=== PATIENT | male | born 1950 | race Caucasian/White ===

== ENCOUNTER → 2018-06-17 | Outpatient (CLI) | payer MEDICARE ==
[2018-06-17 11:19] LABS: HCT 45.9 % (39.0-53.0); HGB 14.5 gm/dL (13.0-17.5); MCH 28.2 pg (25.0-35.0); MCHC 31.6 g/dL (31.0-37.0); MCV 89.1 fL (80.0-100.0); Mean Platelet Volume 7.6; Platelet Count 301 k/uL (150-450); RBC 5.15 m/uL (4.30-5.90); RDW 13.3 % (11.5-15.5); WBC 7.4 k/uL (3.8-10.6)
[2018-06-17 11:29] LABS: Potassium 4.9 mmol/L (3.5-5.1)
== END ==
LOC: LABPAT 10:06
PROVIDERS: ATTEND Surgery
DX: Z01.818 Encounter for other preprocedural examination (principal); Z01.812 Encounter for preprocedural laboratory examination; C18.2 Malignant neoplasm of ascending colon; K63.5 Polyp of colon
CPT/HCPCS: 80051; 85027; 86850; 86900; 86901; 93005

== ENCOUNTER 2018-06-24 07:30 | Inpatient (IN) | payer MEDICARE, OTHER ==
[~2018-06-24 07:30] MED LIST: ALVIMOPAN 12 MG CAPSULE PO ONE; DEXAMETHASONE SOD PHOSPHATE 10 MG/ML 1 ML VIAL IV ONE; HEPARIN SODIUM,PORCINE 5,000 UNIT/ML 1 ML VIAL SQ ONE; HYDROmorphone 0.5 MG/0.5 ML SYRINGE IVP PRN; LIDOCAINE 1% 20 ML VIAL (10MG/ML) FOR IV START INTRADERMA PRN; MIDAZOLAM 2 MG/2 ML VIAL IV PRN; ONDANSETRON 4 MG/2 ML VIAL IVP ONE; fentaNYL (PF) 50 MCG/ML 2 ML AMP IV PRN
[2018-06-24] MEDS: LACTATED RINGERS 1,000 ML IV SCH ×2 (09:49→22:58)
[2018-06-24] MEDS ORDERED: INSULIN ASPART 100 UNIT/ML 1 ML 10 ML VIAL SQ ONE (09:52)
[2018-06-24 09:55] LABS: Glucose,Whole Blood 348 mg/dL (75-99)
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
[2018-06-24] MEDS ORDERED: MIDAZOLAM 2 MG/2 ML VIAL ONE (10:40)
[2018-06-24] MEDS ORDERED: GLYCOPYRROLATE 0.2 MG/ML 2 ML VIAL ONE (10:40)
[2018-06-24] MEDS ORDERED: PROPOFOL 10 MG/ML 20 ML VIAL IV ONE (10:40)
[2018-06-24] MEDS ORDERED: PHENYLEPHRINE-0.9% NACL SYG 1 MG/10 ML SYRINGE ONE (10:40)
[2018-06-24] MEDS ORDERED: SUCCINYLCHOLINE CHLORIDE 100 MG/5 ML SYR IV ONE (10:40)
[2018-06-24] MEDS ORDERED: VECURONIUM 10 MG VIAL IV ONE (10:40)
[2018-06-24] MEDS ORDERED: HYDROmorphone (PF) 1 MG/ML ONE (10:40)
[2018-06-24] MEDS ORDERED: LIDOCAINE 1% INJ 10MG/ML (20 ML MDV) ONE (10:40)
[2018-06-24] MEDS ORDERED: NEOSTIGMINE 1 MG/ML 10 ML VIAL ONE (10:40)
[2018-06-24] MEDS ORDERED: fentaNYL (PF) 50 MCG/ML 2 ML AMP ONE (10:40)
[2018-06-24] MEDS: ceFAZolin IN SWFI 2 GM/20 ML SYRINGE IVP ONE ×2 (10:42→10:48)
[2018-06-24] MEDS ORDERED: BUPIVACAIN-EPI 0.5%-1:200,000 30 ML VIAL SQ ONE ×3 (11:26→11:35)
[2018-06-24] MEDS ORDERED: LACTATED RINGERS 1,000 ML IV ONE ×2 (11:40→16:22)
[2018-06-24 13:10] LABS: Glucose,Whole Blood 258 mg/dL (75-99)
[2018-06-24] MEDS ORDERED: METOCLOPRAMIDE 5 MG/ML 2 ML VIAL IVP PRN (15:39)
[2018-06-24] MEDS ORDERED: ONDANSETRON 4 MG/2 ML VIAL IVP PRN (15:39)
[2018-06-24] MEDS ORDERED: HYDROmorphone 1 MG/ML 1 ML SYRINGE IVP PRN (15:39)
--- NOTE | 2018-06-24 15:50 | P.OP ---
Date of Procedure: 06/24/18 Procedure(s) Performed: PREOPERATIVE DIAGNOSIS: Right-sided colon cancer POSTOPERATIVE DIAGNOSIS: Same PROCEDURE: Laparoscopic da Joel assisted right colectomy with intracorporeal anastomosis SURGEON: Vikas EBL: 25 mL ANESTHESIA: General COMPLICATIONS: None OPERATIVE PROCEDURE: Patient was placed on the operating table in the supine position. The patient was placed under general anesthesia. A Acevedo catheter was placed. The patient's arms were tucked. The abdomen was prepped and draped in usual sterile fashion. A small Pfannenstiel incision was created in the midline. The subcutaneous fat and fascia were divided horizontally using electrocautery. The rectus muscle was divided vertically using blunt dissection and entrance into the peritoneal cavity occurred. The Vladimir lap cap was placed. Through the GelPort adapter of the Vladimir a 12 mm robotic port and a 12 mm assist port were placed. Full insufflation took place to 15 mmHg. 3 additional trochars were placed for the robot a 12 mm in the left subcostal a 8 mm in the left lateral infraumbilical and a 8 mm trocar in the left lower quadrant location. An additional accessory 5 mm trocar was placed in the left lateral abdomen for the help desk assistant to utilize. The patient was placed in Trendelenburg right side up. The liver was free of any evidence of distant metastasis. The patient's tumor was identified with the tattooing in the distal ascending colon. The retroperitoneum was evaluated. The ileocolic pedicle was identified by retracting the cecum anteriorly and laterally. Careful dissection using both blunt dissection and cautery took place in the retroperitoneum. The duodenum was quickly identified and this was protected throughout the remainder of the procedure. Our dissection took place laterally and circumferentially around the ileocolic pedicle. The ileocolic pedicle was divided using a 45 white load stapler. A small area of bleeding at the distal aspect of the staple line was controlled using a 12 mm clipper. No further bleeding was seen at that point. Once we reached the lateral abdomen from our retroperitoneal approach the ileum cecum and ascending colon were mobilized by incising the lateral peritoneal attachments. We entered into a retroperitoneal dissection plane. The ureter was visualized and protected throughout the case. The hepatic flexure was mobilized in a similar fashion although in that location we started using the vessel sealer. The gastrocolic omentum was dissected away from the proximal transverse colon. Once we were able to visualize the transverse colon and hepatic flexure well the transverse colon was divided using a blue load 45 stapler. The mesentery of the transverse colon was then divided using the vessel sealer. The small bowel was divided as well using a robotic blue load stapler. At this point our specimen was free and placed in the left upper quadrant. The terminal ileum was brought in an isoperistaltic manner adjacent to the transverse colon. 2 separate 3-0 GI silk stay sutures were placed proximally and distally. Small enterotomy and colotomy took place. At that time stapler was fired along the antimesenteric border of both the small bowel and the colon. 2 separate firings of the 45 blue load stapler were utilized. We had an adequate opening between the small bowel and colon at that point. The defect was closed transversely using a running full-thickness 20V lock suture. Once the defect was closed I used a running horizontal mattress Lambert suture along the length of the staple line in order to imbricate that area. The previously placed 3-0 GI silk sutures acted as stay sutures proximally and distally. The specimen was grasped through the Vladimir assist port and the pneumoperitoneum was evacuated. The specimen was able to be retrieved quite easily. The fascia was closed using a running double-stranded #1 PDS suture. The 12 mm trocar site fascia was closed using a [id number] 0 Vicryl suture. The subcutaneous tissues were irrigated with saline. The subcutaneous tissues were closed using 3-0 Vicryl sutures. The skin at all locations were closed using 4-0 Monocryl sutures. Dermabond was then utilized. Sterile dressings were applied. DISPOSITION: Stable to recovery room
[2018-06-24] MEDS ORDERED: METOPROLOL TARTRATE 5 MG/5 ML VIAL IVP ONE ×2 (16:00)
[2018-06-24] MEDS: D5-0.45% NACL WITH KCL 20MEQ/L 1,000 ML IV SCH (17:13)
[2018-06-24] MEDS: HEPARIN SODIUM,PORCINE 5,000 UNIT/ML 1 ML VIAL SQ SCH (17:13)
[2018-06-24 17:27] LABS: Glucose,Whole Blood 310 mg/dL (75-99)
[2018-06-24] MEDS: INSULIN ASPART 100 UNIT/ML 1 ML 10 ML VIAL SQ SCH ×2 (17:45→21:13)
[2018-06-24 20:47] LABS: Glucose,Whole Blood 349 mg/dL (75-99)
[2018-06-24] MEDS: FAMOTIDINE 20 MG/2 ML VIAL IV SCH (21:13)
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
[2018-06-24] MEDS ORDERED: INSULIN DETEMIR 100 UNIT/ML 10 ML VIAL SQ SCH (21:30)
[2018-06-24] MEDS: METOPROLOL TARTRATE 50 MG TAB PO SCH (23:00)
[2018-06-25] MEDS: HEPARIN SODIUM,PORCINE 5,000 UNIT/ML 1 ML VIAL SQ SCH ×4 (00:29→23:59)
[2018-06-25] MEDS: D5-0.45% NACL WITH KCL 20MEQ/L 1,000 ML IV SCH ×3 (00:32→16:58)
[2018-06-25 03:44] LABS: Glucose,Whole Blood 303 mg/dL (75-99)
[2018-06-25] MEDS ORDERED: ACETAMINOPHEN IV (For NPO) 1,000 MG in EMPTY BAG 1 BAG IVPB PRN (04:36)
[2018-06-25] MEDS ORDERED: INSULIN ASPART 100 UNIT/ML 1 ML 10 ML VIAL SQ ONE (05:10)
[2018-06-25 06:52] LABS: Glucose,Whole Blood 288 mg/dL (75-99)
[2018-06-25 07:32] LABS: Basophils % (A) 0 %; Eosinophils % (A) 0 %; HCT 40.1 % (39.0-53.0); HGB 13.3 gm/dL (13.0-17.5); Lymphocytes # (A) 1.2 k/uL (1.0-4.8); Lymphocytes % (A) 9 %; MCH 28.9 pg (25.0-35.0); MCHC 33.2 g/dL (31.0-37.0); MCV 86.8 fL (80.0-100.0); Mean Platelet Volume 7.4; Monocytes # (A) 0.8 k/uL (0-1.0); Monocytes % (A) 6 %; Neutrophils % (A) 84 %; Platelet Count 255 k/uL (150-450); RBC 4.62 m/uL (4.30-5.90); RDW 13.3 % (11.5-15.5); WBC 13.1 k/uL (3.8-10.6)
[2018-06-25] MEDS: METOPROLOL TARTRATE 50 MG TAB PO SCH ×2 (07:36→21:13)
[2018-06-25] MEDS: LISINOPRIL-HCTZ 20-25 MG 1 EACH TAB PO SCH (07:36)
[2018-06-25] MEDS: FAMOTIDINE 20 MG/2 ML VIAL IV SCH ×2 (07:36→21:12)
[2018-06-25] MEDS: ASPIRIN 81 MG PO SCH (07:36)
[2018-06-25] MEDS: ALVIMOPAN 12 MG CAPSULE PO SCH ×2 (07:36→21:12)
[2018-06-25] MEDS: INSULIN ASPART 100 UNIT/ML 1 ML 10 ML VIAL SQ SCH ×4 (07:38→21:12)
[2018-06-25 07:41] LABS: Calcium 9.1 mg/dL (8.4-10.2)
[2018-06-25 07:50] LABS: Potassium 4.6 mmol/L (3.5-5.1)
[2018-06-25 11:41] LABS: Glucose,Whole Blood 234 mg/dL (75-99)
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
[2018-06-25 14:54] LABS: Hemoglobin A1C 7.4 % (4.0-6.0)
[2018-06-25] MEDS ORDERED: HYDROcodone/APAP 5-325MG 1 EACH TAB PO PRN (15:33)
--- NOTE | 2018-06-25 15:33 | P.PN ---
Subjective Progress Note Date: 06/25/18 Principal diagnosis: Right-sided colon cancer Patient doing well today. Mild pain. Small amount of flatus. Was tachycardic last night. He says he was quite anxious last night. Today's white blood cell count 13.1. Hemoglobin stable. Creatinine 1.3. Objective - Vital Signs Vital signs: Vital Signs Temp 98.3 F 06/25/18 07:17 Pulse 67 06/25/18 07:17 Resp 16 06/25/18 07:17 BP 168/91 06/25/18 07:17 Pulse Ox 95 06/25/18 07:17 Intake & Output 06/24/18 06/25/18 06/25/18 18:59 06:59 18:59 Intake Total 2000 1525 1000 Output Total 390 2300 1300 Balance 1610 -775 -300 Intake: IV 2000 1000 D5-0.45% NaCl with KCl 1000 20Meq/l 1,000 ml @ 75 mls /hr IV .[id number] [facility] Rx#: [id number] Intake, IV Titration 1525 Amount ACETAMINOPHEN IV (For NPO 400 ) 1,000 mg In Empty Bag 1 bag @ 400 mls/hr IVPB Q6HR PRN Rx#:[id number] D5-0.45% NaCl with KCl 1125 20Meq/l 1,000 ml @ 75 mls /hr IV .[id number] [facility] Rx#: [id number] Output: Urine 365 2300 1300 Uretheral (Acevedo) 2300 1000 Estimated Blood Loss 25 Other: Voiding Method Indwelling Catheter Indwelling Catheter - Exam Abdomen: Soft, nondistended, incisions clean and dry - Labs CBC & Chem 7: 06/25/18 06:02 06/25/18 06:02 Labs: Abnormal Lab Results - Last 24 Hours (Table) 06/24/18 06/24/18 06/25/18 Range/Units 17:15 20:45 03:42 WBC (3.8-10.6) k/uL Neutrophils # (1.3-7.7) k/uL Creatinine (0.66-1.25) mg/dL Glucose (74-99) mg/dL POC Glucose (mg/dL) 310 H 349 H 303 H (75-99) mg/dL Hemoglobin A1c (4.0-6.0) % 06/25/18 06/25/18 06/25/18 Range/Units 06:02 06:02 06:02 WBC 13.1 H (3.8-10.6) k/uL Neutrophils # 11.0 H (1.3-7.7) k/uL Creatinine 1.34 H (0.66-1.25) mg/dL Glucose 305 H (74-99) mg/dL POC Glucose (mg/dL) (75-99) mg/dL Hemoglobin A1c 7.4 H (4.0-6.0) % 06/25/18 06/25/18 Range/Units 06:50 11:39 WBC (3.8-10.6) k/uL Neutrophils # (1.3-7.7) k/uL Creatinine (0.66-1.25) mg/dL Glucose (74-99) mg/dL POC Glucose (mg/dL) 288 H 234 H (75-99) mg/dL Hemoglobin A1c (4.0-6.0) % Assessment and Plan (1) Colon cancer Narrative/Plan: Increase activity. Gradually advance diet. Anticipate discharge 24-48 hours. Current Visit: Yes Status: Acute Code(s): C18.9 - MALIGNANT NEOPLASM OF COLON, UNSPECIFIED SNOMED Code(s): 426761382
[2018-06-25 16:28] LABS: Glucose,Whole Blood 303 mg/dL (75-99)
[2018-06-25 19:10] LABS: Glucose,Whole Blood 258 mg/dL (75-99)
[2018-06-25] MEDS: LACTATED RINGERS 1,000 ML IV SCH (21:13)
[2018-06-25] MEDS: INSULIN DETEMIR 100 UNIT/ML 10 ML VIAL SQ SCH (21:13)
[2018-06-26] MEDS: D5-0.45% NACL WITH KCL 20MEQ/L 1,000 ML IV SCH ×2 (03:37→15:48)
[2018-06-26 07:21] LABS: Basophils # (A) 0.1 k/uL (0-0.2); Basophils % (A) 0 %; Eosinophils # (A) 0.2 k/uL (0-0.7); Eosinophils % (A) 2 %; HCT 40.3 % (39.0-53.0); HGB 13.1 gm/dL (13.0-17.5); Lymphocytes # (A) 2.2 k/uL (1.0-4.8); Lymphocytes % (A) 17 %; MCH 28.6 pg (25.0-35.0); MCHC 32.5 g/dL (31.0-37.0); MCV 88.1 fL (80.0-100.0); Mean Platelet Volume 7.5; Monocytes # (A) 0.7 k/uL (0-1.0); Monocytes % (A) 6 %; Neutrophils # (A) 9.5 k/uL (1.3-7.7); Neutrophils % (A) 73 %; Platelet Count 237 k/uL (150-450); RBC 4.57 m/uL (4.30-5.90); RDW 13.3 % (11.5-15.5); WBC 12.9 k/uL (3.8-10.6)
[2018-06-26 07:27] LABS: Calcium 9.2 mg/dL (8.4-10.2); Potassium 4.5 mmol/L (3.5-5.1)
[2018-06-26 07:30] LABS: Glucose,Whole Blood 180 mg/dL (75-99)
--- NOTE | 2018-06-26 07:58 | P.PN ---
Subjective Progress Note Date: 06/26/18 Principal diagnosis: Right-sided colon cancer Patient doing well today. Pain well-controlled. He is passing flatus. He is ambulating. No nausea or vomiting. Objective - Vital Signs Vital signs: Vital Signs Temp 98.2 F 06/26/18 00:55 Pulse 71 06/26/18 00:55 Resp 16 06/26/18 00:55 BP 156/84 06/26/18 00:55 Pulse Ox 95 06/26/18 00:55 Intake & Output 06/25/18 06/26/18 06/26/18 18:59 06:59 18:59 Intake Total 1000 750 Output Total 1300 Balance -300 750 Intake: IV 1000 D5-0.45% NaCl with KCl 1000 20Meq/l 1,000 ml @ 75 mls /hr IV .[id number] [facility] Rx#: [id number] Intake, IV Titration 750 Amount D5-0.45% NaCl with KCl 750 20Meq/l 1,000 ml @ 75 mls /hr IV .[id number] [facility] Rx#: [id number] Output: Urine 1300 Uretheral (Acevedo) 1000 Other: Voiding Method Indwelling Catheter Toilet # Voids 3 - Exam Abdomen: Soft, mild incisional tenderness, incisions clean and dry - Labs CBC & Chem 7: 06/26/18 06:41 06/26/18 06:41 Labs: Abnormal Lab Results - Last 24 Hours (Table) 06/25/18 06/25/18 06/25/18 Range/Units 06:02 06:02 11:39 WBC (3.8-10.6) k/uL Neutrophils # (1.3-7.7) k/uL Carbon Dioxide (22-30) mmol/L Creatinine 1.34 H (0.66-1.25) mg/dL Glucose 305 H (74-99) mg/dL POC Glucose (mg/dL) 234 H (75-99) mg/dL Hemoglobin A1c 7.4 H (4.0-6.0) % 06/25/18 06/25/18 06/26/18 Range/Units 16:07 19:08 06:41 WBC 12.9 H (3.8-10.6) k/uL Neutrophils # 9.5 H (1.3-7.7) k/uL Carbon Dioxide (22-30) mmol/L Creatinine (0.66-1.25) mg/dL Glucose (74-99) mg/dL POC Glucose (mg/dL) 303 H 258 H (75-99) mg/dL Hemoglobin A1c (4.0-6.0) % 06/26/18 06/26/18 Range/Units 06:41 07:29 WBC (3.8-10.6) k/uL Neutrophils # (1.3-7.7) k/uL Carbon Dioxide 32 H (22-30) mmol/L Creatinine 1.28 H (0.66-1.25) mg/dL Glucose 164 H (74-99) mg/dL POC Glucose (mg/dL) 180 H (75-99) mg/dL Hemoglobin A1c (4.0-6.0) % Assessment and Plan (1) Colon cancer Narrative/Plan: Continue advancing diet. Ambulate. Probable discharge tomorrow. Today's white blood cell count 12.9. We'll repeat tomorrow. Current Visit: Yes Status: Acute Code(s): C18.9 - MALIGNANT NEOPLASM OF COLON, UNSPECIFIED SNOMED Code(s): 797735819
[2018-06-26] MEDS: METOPROLOL TARTRATE 50 MG TAB PO SCH ×2 (08:10→20:56)
[2018-06-26] MEDS: ASPIRIN 81 MG PO SCH (08:10)
[2018-06-26] MEDS: FAMOTIDINE 20 MG/2 ML VIAL IV SCH ×2 (08:10→20:56)
[2018-06-26] MEDS: ALVIMOPAN 12 MG CAPSULE PO SCH ×2 (08:11→20:55)
[2018-06-26] MEDS: HEPARIN SODIUM,PORCINE 5,000 UNIT/ML 1 ML VIAL SQ SCH ×2 (08:11→17:57)
[2018-06-26] MEDS: INSULIN ASPART 100 UNIT/ML 1 ML 10 ML VIAL SQ SCH ×4 (08:11→20:56)
[2018-06-26] MEDS: LISINOPRIL-HCTZ 20-25 MG 1 EACH TAB PO SCH ×2 (08:15→08:16)
[2018-06-26 12:17] LABS: Glucose,Whole Blood 222 mg/dL (75-99)
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
[2018-06-26 16:52] LABS: Glucose,Whole Blood 257 mg/dL (75-99)
[2018-06-26 20:30] LABS: Glucose,Whole Blood 256 mg/dL (75-99)
[2018-06-26] MEDS: INSULIN DETEMIR 100 UNIT/ML 10 ML VIAL SQ SCH (20:56)
[2018-06-26] MEDS: LACTATED RINGERS 1,000 ML IV SCH (21:20)
[2018-06-27] MEDS: HEPARIN SODIUM,PORCINE 5,000 UNIT/ML 1 ML VIAL SQ SCH ×2 (00:18→08:36)
[2018-06-27 06:53] LABS: Glucose,Whole Blood 168 mg/dL (75-99)
[2018-06-27] MEDS: METOPROLOL TARTRATE 50 MG TAB PO SCH (08:35)
[2018-06-27] MEDS: ALVIMOPAN 12 MG CAPSULE PO SCH (08:35)
[2018-06-27] MEDS: ASPIRIN 81 MG PO SCH (08:35)
[2018-06-27] MEDS: LISINOPRIL-HCTZ 20-25 MG 1 EACH TAB PO SCH (08:36)
[2018-06-27] MEDS: FAMOTIDINE 20 MG/2 ML VIAL IV SCH (08:36)
[2018-06-27] MEDS: INSULIN ASPART 100 UNIT/ML 1 ML 10 ML VIAL SQ SCH ×2 (08:36→13:13)
[2018-06-27 08:38] LABS: Basophils # (A) 0.1 k/uL (0-0.2); Basophils % (A) 1 %; Eosinophils # (A) 0.4 k/uL (0-0.7); Eosinophils % (A) 3 %; HCT 43.6 % (39.0-53.0); HGB 13.7 gm/dL (13.0-17.5); Lymphocytes # (A) 1.7 k/uL (1.0-4.8); Lymphocytes % (A) 15 %; MCHC 31.4 g/dL (31.0-37.0); MCV 89.4 fL (80.0-100.0); Monocytes # (A) 0.6 k/uL (0-1.0); Monocytes % (A) 5 %; Neutrophils # (A) 8.9 k/uL (1.3-7.7); Neutrophils % (A) 75 %; Platelet Count 291 k/uL (150-450); RBC 4.88 m/uL (4.30-5.90); RDW 13.1 % (11.5-15.5); WBC 11.9 k/uL (3.8-10.6)
[2018-06-27] MEDS: D5-0.45% NACL WITH KCL 20MEQ/L 1,000 ML IV SCH (08:42)
[2018-06-27 08:43] VITALS: BP 153/80; PULSE 80; RESP 18; TEMP 97.8
[2018-06-27 11:48] LABS: Glucose,Whole Blood 247 mg/dL (75-99)
--- NOTE | 2018-06-27 15:10 | P.DS ---
Providers Date of admission: 06/24/18 09:01 Expected date of discharge: 06/27/18 Attending physician: Reno Bean Consults: 06/24/18 15:39 Consult Physician Routine Consulting Provider: Abner Forbes Consult Reason/Comments: Medical management Do you want consulting provider notified?: Yes Primary care physician: [facility] Course: 67-year-old male who underwent elective laparoscopic right colectomy secondary to colon cancer. Patient is doing well postoperatively without any immediate complications. Patients pain is tolerable. He is tolerating oral diet. Having BMs. WBC is trending downward. Afebrile. Vital signs are stable. He is stable for discharge home today. He is to follow up with Dr. Bean in 1 week. See EMR for further hospital details. DISCHARGE DIAGNOSIS: 1. History of colon cancer, status post laparoscopic right colectomy Nurse practitioner note has been reviewed by physician. Signing provider agrees with the documented findings, assessment, and plan of care. Plan - Discharge Summary Discharge Rx Participant: No New Discharge Prescriptions: New HYDROcodone/APAP 5-325MG [[place] 5-325] 1 tab PO Q4HR PRN 3 Days #18 tab PRN Reason: Pain No Action Red Yeast Rice 600 mg PO BID Lisinopril-Hctz 20-25 mg [Zestoretic 20-25] 1 tab PO DAILY metFORMIN HCL 1,000 mg PO BID Metoprolol Tartrate [Lopressor] 50 mg PO BID Niacin 500 mg PO AC-SUPPER Aspirin [[place] Aspirin EC] 81 mg PO DAILY Naproxen Sodium [Aleve] 220 mg PO Q12HR Insulin Glargine,Hum.rec.anlog [[place] Solostar] 20 units SQ HS Insulin Aspart [NovoLOG Flexpen] See Protocol SQ TID-W/MEALS PRN PRN Reason: Blood Sugar - High Discharge Medication List Aspirin [[place] Aspirin EC] 81 mg PO DAILY 06/19/18 [History] Insulin Aspart [NovoLOG Flexpen] See Protocol SQ TID-W/MEALS PRN 06/19/18 [ History] Insulin Glargine,Hum.rec.anlog [[place] Solostar] 20 units SQ HS 06/19/18 [ History] Lisinopril-Hctz 20-25 mg [Zestoretic 20-25] 1 tab PO DAILY 06/19/18 [History] Metoprolol Tartrate [Lopressor] 50 mg PO BID 06/19/18 [History] Naproxen Sodium [Aleve] 220 mg PO Q12HR 06/19/18 [History] Niacin 500 mg PO AC-SUPPER 06/19/18 [History] Red Yeast Rice 600 mg PO BID 06/19/18 [History] metFORMIN HCL 1,000 mg PO BID 06/19/18 [History] HYDROcodone/APAP 5-325MG [[place] 5-325] 1 tab PO Q4HR PRN 3 Days #18 tab [Rx] Follow up Appointment(s)/Referral(s): Reno Bean MD [Medical Doctor] - 07/03/18 1:40 pm Activity/Diet/Wound Care/Special Instructions: No driving while taking [place] No lifting over 10 pounds You may shower. No soaking or tub baths Very light activity until you are reevaluated at your follow up appointment with your surgeon
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
== END 2018-06-27 16:03 | disposition home or self-care (01) | DRG 331 ==
LOC: EDSTATUS 07:30 → 2ORMAIN 09:01 → 4SSUR 15:49
PROVIDERS: ADMIT Surgery; ATTEND Surgery
PROC: 8E0W3CZ Robotic Assisted Procedure of Trunk Region, Percutaneous Approach (ICD-10-PCS; 2018-06-24)
PROC: 0DTF0ZZ Resection of Right Large Intestine, Open Approach (ICD-10-PCS; principal; 2018-06-24 11:00)
DX: C18.2 Malignant neoplasm of ascending colon (principal); I10 Essential (primary) hypertension; M19.90 Unspecified osteoarthritis, unspecified site; I83.90 Asymptomatic varicose veins of unspecified lower extremity; E11.65 Type 2 diabetes mellitus with hyperglycemia; K44.9 Diaphragmatic hernia without obstruction or gangrene; D72.829 Elevated white blood cell count, unspecified; G43.909 Migraine, unspecified, not intractable, without status migrainosus; I25.10 Atherosclerotic heart disease of native coronary artery without angina pectoris; Z79.4 Long term (current) use of insulin; Z79.899 Other long term (current) drug therapy; Z79.82 Long term (current) use of aspirin; Z79.1 Long term (current) use of non-steroidal anti-inflammatories (NSAID); Z90.5 Acquired absence of kidney; Z80.9 Family history of malignant neoplasm, unspecified
CPT/HCPCS: 80048; 83036; 85025; 86850; 86900; 86901; 94760